=== PATIENT | female | born 1975 | race Two or more races ===

== ENCOUNTER → 2016-10-25 | Outpatient (CLI) | payer OTHER ==
[~2016-10-25] MED LIST: LEVOTHYROXINE88 MCG PO; SIMVASTATIN40 MG
--- NOTE | ~2016-10-25 | EKG ---
PATIENT: PEPITO CARDONA UNIT #: [id number] Ventricular Rate: 64 BPM Atrial Rate: 64 BPM P-R Interval: 172 ms QRS Duration: 78 ms Q-T Interval: 456 ms QTC Calculation(Bezet): 470 ms P Tracy: 27 degrees Calculated R Tracy: 30 degrees Calculated T Tracy: 29 degrees Diagnosis Line: Normal sinus rhythm Diagnosis Line: Normal ECG Diagnosis Line: No previous ECGs available Diagnosis Line: Confirmed by DULCE MARIA ORTEGA MD ([id number]) on Diagnosis Line: 10/25/2016 10:42:53 PM INTERPRETING MD: VARUN
[2016-10-25 09:58] LABS: HEMATOCRIT 40.6 % (35.0-45.0); HEMOGLOBIN 13.5 gm/dL (12.0-16.0); MEAN CELL VOLUME 91.4 FL (83-96); MEAN CORPUSCULAR HEMOGLOBIN 30.5 PG (28-34); MEAN CORPUSCULAR HGB CONC 33.4 g/dL (30-36); MEAN PLATELET VOLUME 7.6 FL (6.5-11.5); RED BLOOD COUNT 4.44 X10e (3.90-5.30); RED CELL DISTRIBUTION WIDTH 13.5 % (11.0-15.5); WHITE BLOOD COUNT 4.4 X10e3 (4.0-10.5)
[2016-10-25 10:50] LABS: CALCIUM SERUM 9.4 mg/dL (8.4-10.2); CREATININE SERUM 0.8 mg/dL (0.6-1.4); GLOM FILT RATE Estimated 90.4 mL/min (>60); POTASSIUM 3.9 mmol/L (3.5-5.1)
== END | disposition home or self-care (01) ==
LOC: CAMB 09:38
PROVIDERS: Specialist
DX: Z01.818 Encounter for other preprocedural examination (principal); J35.01 Chronic tonsillitis
CPT/HCPCS: 36415; 80048; 85027; 93005

== ENCOUNTER → 2016-11-01 | Day surgery (SDC) | payer OTHER ==
--- NOTE | ~2016-11-01 | OR ---
Unit #: [id number] #: [id number] Patient: PEPITO CARDONA [id number] [address] [address] [id number] MR#: [id number] NAME: PEPITO CARDONA. ROOM: Date of Procedure: 11/01/2016 Admission Date: 11/01/2016 Surgeon: Jefe Stephens M.D. : 1975 Attending Physician: Jefe Stephens M.D. Primary Care Physician: Sami Fournier M.D. OPERATIVE REPORT PREOPERATIVE DIAGNOSES 1. Tonsillar hypertrophy. 2. Chronic tonsillitis. POSTOPERATIVE DIAGNOSES 1. Tonsillar hypertrophy. 2. Chronic tonsillitis. PROCEDURE PERFORMED Tonsillectomy. ANESTHESIA By general endotracheal anesthesia. COMPLICATIONS There were none. FINDINGS Included adenotonsillar hypertrophy. INDICATIONS FOR PROCEDURE This is a 41-year-old female, who has had a history of chronic tonsillitis presents today for tonsillectomy. DESCRIPTION OF PROCEDURE The patient was placed supine on the operating table. Anesthesia was achieved by general endotracheal anesthesia. The patient was prepped and draped for tonsillectomy. Ashley-Jeremy mouth gag was inserted and retracted. The palate was palpated. There was no submucous cleft noted. Tonsils were dissected in an extracapsular fashion first on the right and then on the left with Bovie cautery. All bleeders were cauterized with Bovie cautery. All apparatus was removed. The patient was awakened and transferred to recovery in stable condition. Dictated by... Bear Lee/diogenes TD: 11/03/2016 03:18 JOB #: [id number] Unit #: [id number] #: [id number] Patient: PEPITO CARDONA OPERATIVE REPORT Page 1 of 1 X Jefe Stephens MD X PROCEDURE OPERATIVE NOTE
== END | disposition home or self-care (01) ==
LOC: CSUR 09:50
DX: J35.01 Chronic tonsillitis (principal); J35.2 Hypertrophy of adenoids; E03.9 Hypothyroidism, unspecified; J30.89 Other allergic rhinitis; Z88.5 Allergy status to narcotic agent; Z88.8 Allergy status to other drugs, medicaments and biological substances; Z90.49 Acquired absence of other specified parts of digestive tract; Z98.51 Tubal ligation status; Z98.890 Other specified postprocedural states; Z87.891 Personal history of nicotine dependence; Z79.899 Other long term (current) drug therapy
CPT/HCPCS: 84703; 88304; J0131; J0330; J1100; J2250; J2405; J3010